=== PATIENT | female | born 1990 | race African-American/Black ===

== ENCOUNTER 2019-01-22 18:20 | Inpatient (IN) ==
[2019-01-22] MEDS ORDERED: MORPHINE IV ONE (18:29)
[2019-01-22] MEDS ORDERED: NS 1,000 ML IV ONE (18:29)
[2019-01-22] MEDS ORDERED: ZOFRAN IV ONE (18:29)
--- NOTE | 2019-01-22 18:37 | PROVIDER DOCUMENTATION ---
This chart was entered by Lauryn Garza Scribe, acting as scribe for Romulo Rodriguez MD. HPI-Female /OB/Breast - General Chief Complaint: Female Stated Complaint: OB Time Seen by Provider: 01/22/19 18:29 Source: reports: patient Allergies/Adverse Reactions: Patient Allergies Allergy/AdvReac Type Severity Reaction Status Date / Time No Known Allergies Allergy Verified 11/26/18 11:18 Home Medications: Home Medication List Medication Instructions Recorded Confirmed Last Taken Type Vit No.128/Iron/FA [Eql 1 tab PO DAILY 04/01/15 01/08/19 04/07/15 09:00 History Vitamin Tablet] Metformin [Glucophage] 750 mg PO DAILY 01/08/19 01/08/19 Unknown History - History of Present Illness-Female /OB Nature of Presenting Problem: Pt presents to ED at 41 wks , having contractions. This is pt 4th . Pt denies water breaking, no bleeding. Pt has had care. Location of complaint: reports: other (contractions) Quality of Pain: reports: aching, tightness Severity in ED: reports: moderate Onset/Duration: reports: 1 hour ago Timing: reports: still present Context/Activities at Onset: reports: none Vaginal Symptoms: reports: no symptoms Vaginal Bleeding Amount: None Urinary Symptoms: reports: no symptoms Related Symptoms: reports: uterine contractions, abdominal pain. denies: vaginal fluid leakage, vaginal bleeding Leakage of Fluid: none Associated Symptoms: reports: denies symptoms - LMP/ History : 4 Para: 3 Care: OB doctor CURRENT Problems: none Review of Systems - Adult - REVIEW OF SYSTEMS - ADULT Constitutional: reports: no symptoms reported. denies: chills, fever Eyes: reports: no symptoms reported Ears, Nose, Mouth & Throat: reports: no symptoms reported Cardiovascular: reports: no symptoms reported Respiratory: reports: no symptoms reported Gastrointestinal: reports: abdominal pain. denies: nausea, vomiting Genitourinary: reports: no symptoms reported Musculoskeletal: reports: no symptoms reported Integumentary: reports: no symptoms reported Neurological: reports: no symptoms reported Psychiatric: reports: no symptoms reported Endocrine: reports: no symptoms reported Hematologic/Lymphatic: reports: no symptoms reported Allergic/Immunologic: reports: no symptoms reported All Other Systems: Reviewed and Negative Past History - Adult - PAST MEDICAL HISTORY-ADULT Review of Records: reports: Old Records Reviewed, Nursing Assessment Review, Medications Reviewed, Social history reviewed & non-contributory. Cardiovascular: reports: denies history Respiratory: reports: denies history Gastrointestinal: reports: denies history Genitourinary: reports: denies history Musculoskeletal: reports: denies history Neurological: reports: denies history Endocrine/Immune: reports: denies history Other Conditions: reports: denies history - PRIOR SURGERIES/PROCEDURES Surgical/Procedure History: reports: none - PRIOR HOSPITALIZATIONS Prior Hospitalizations: reports: none - IMMUNIZATION STATUS Childhood Immunizations: See Nurse Assessment Flu Vaccine: See Nurse Assessment - FAMILY HISTORY Family History: reviewed, not pertinent - SOCIAL HISTORY Substance Use: none/never Alcohol Use Frequency: never Living Situation: family Physical Exam-General - PHYSICAL EXAM-ADULT Initial Vital Signs Reviewed: Yes - CONSTITUTIONAL General Appearance: appears well, alert, moderate distress - EYES Eyes: PERRL/EOMI, pink conjunctivae - HEAD, EARS, NOSE, MOUTH & THROAT HENMT: normocephalic/atraumatic, moist mucous membranes - NECK Neck: non-tender, full range of motion, supple - RESPIRATORY Respiratory: lungs clear - CARDIOVASCULAR Cardiovascular: tachycardia (102) - GASTROINTESTINAL (ABDOMEN) Abdominal Exam: other (gravid abd) - GENITOURINARY Female Genitalia/Pelvic Exam: other (normal visual exam, no ) - MUSCULOSKELETAL Back Exam: normal inspection Extremity: normal range of motion, non-tender, normal gait, normal inspection - SKIN Integumentary: normal color, warm/dry - NEUROLOGIC Neurologic: grossly normal - PSYCHIATRIC Psych/Mental Status: normal mood/affect, normal thought content, normal thought process, oriented x 3 Progress - PLAN OF CARE/RESULTS Progress/Plan/Lab Results: Vital Signs - 8 hr 01/22/19 18:22 Temperature 98 F Pulse Rate 102 H Respiratory Rate 18 Blood Pressure 108/64 O2 Sat by Pulse Oximetry 99 Orders Category Date Time Status CBC WITH ELECTRONIC DIFF [HEME] Stat Lab 01/22/19 18:30 Uncollected COMPREHENSIVE METABOLIC PANEL [CHEM] Stat Lab 01/22/19 18:30 Uncollected TYPE & SCREEN [BBK] Stat Lab 01/22/19 18:[address] W/POSS RFLX CULT [URINALYSIS] Stat Lab 01/22/19 18:30 Uncollected URINE DRUG SCREEN PL Stat Lab 01/22/19 18:30 Uncollected 0.9% Sodium Chloride Inj [Ns] 1,000 ml Med 01/22/19 18:29 Active IV 999 mls/hr Morphine Med 01/22/19 18:29 Discontinued 4 mg IV NOW ONE Ondansetron [Zofran] Med 01/22/19 18:29 Discontinued 4 mg IV NOW ONE - REASSESSMENT Reassessment #1 Time Reassessed: 18:37 Status: improving (Given iVF, morphine/zofran) - CONSULTS/PCP/HOSPITALIST Notification #1 *Consult/PCP/Hospitalist*: Dr. Llanos Time Discussed: 18:35 (accepted, pt will transfer to ) Departure - Departure Date of Disposition Decision: 01/22/19 Time of Disposition Decision: 18:37 DIAGNOSIS: Active labor at term Disposition: ADMITTED INPATIENT 09 Certified Medical Emergency: Emergent Condition: Stable Referrals and Follow-Ups: None,PCP [Primary Care Provider] - - Critical Care Note This patient required my direct & personal management of CC.: No Attestation - Physician/ MARLI Attestation Patient care was provided by Advanced Practice Provider:: No The physician spent face to face time with patient:: Yes Advanced Practice Provider documentation review:: Supervising physician onsite and consulted in the evaluation and care of this patient. The physician did have a face to face encounter with the patient. This chart was documented by the indicated scribe, (Lauryn Garza, Scribe) and accurately reflects the services I performed and decisions made by me, Romulo Rodriguez MD, as attested by the provider's signature.
[2019-01-22] MEDS: STADOL IV ONE ×2 (18:40→19:45)
[2019-01-22 19:14] LABS: BASO# 0.01 X1000 (0.0-0.2); BASO% 0.1 % (0.0-0.8); EOS# 0.11 X1000 (0.0-0.7); EOS% 1.5 % (0.0-10.0); HEMATOCRIT 33.7 % (37.0-47.0); HEMOGLOBIN 10.6 g/dL (12.0-16.0); IMM GRAN# 0.01 X1000 (0.0-0.04); IMM GRAN% 0.1 % (0.0-0.5); LYMPH# 2.25 X1000 (1.2-3.4); LYMPH% 31.1 % (20.5-51.1); MCH 26.2 PG (27-31); MCHC 31.5 g/dL (33-37); MCV 83.2 FL (81-99); MONO# 0.57 X1000 (0.11-0.59); MONO% 7.9 % (1.7-9.3); MPV 9.6 FL (7.4-10.4); NEUT# 4.29 X1000 (1.4-6.5); NEUT% 59.3 % (42.2-75.2); PLT 360 X1000 (130-400); RBC 4.05 XMIL (4.2-5.4); RDW 14.7 % (11.5-14.5); WBC 7.24 X1000 (4.8-10.8)
[2019-01-22] MEDS ORDERED: NS 100 ML IV ONE (19:30)
[2019-01-22] MEDS ORDERED: KEFZOL 1 GM/D5W 1 GM/50 ML IVPB IV PRN (19:34)
[2019-01-22] MEDS ORDERED: ZOFRAN IV PRN (19:34)
[2019-01-22] MEDS ORDERED: AMPICILLIN 2 GM/NS 2 GM/100 ML IVPB IV ONE (19:34)
[2019-01-22] MEDS ORDERED: TYLENOL PO PRN (19:34)
[2019-01-22] MEDS ORDERED: STADOL IV PRN (19:34)
[2019-01-22] MEDS ORDERED: PEPCID PO PRN (19:34)
[2019-01-22] MEDS ORDERED: REGLAN PO ONE (19:34)
[2019-01-22] MEDS ORDERED: PEPCID IV PRN (19:34)
[2019-01-22] MEDS ORDERED: PEPCID PO ONE (19:34)
[2019-01-22] MEDS ORDERED: LR 1,000 ML IV SCH (19:45)
[2019-01-22] MEDS ORDERED: SODIUM CHLORIDE 0.9% INJ SCH (19:45)
[2019-01-22] MEDS ORDERED: PITOCIN 30 UNITS/NS 30 UNIT/500 ML IV.SOLN IV SCH ×2 (19:45→21:30)
[2019-01-22] MEDS ORDERED: FENTANYL-BUPIV-NS 2 MCG-0.1% 250 ML EPIDURAL SCH (20:00)
[2019-01-22] MEDS ORDERED: NAROPIN 0.2% INJ ONE (20:00)
[2019-01-22] MEDS ORDERED: BENADRYL PO PRN (21:29)
[2019-01-22] MEDS ORDERED: PITOCIN IM PRN (21:29)
[2019-01-22] MEDS ORDERED: HYDROXYZINE IM PRN (21:29)
[2019-01-22] MEDS ORDERED: BOOSTRIX VACCINE IM ONE (21:29)
[2019-01-22] MEDS ORDERED: BENADRYL IV PRN (21:29)
[2019-01-22] MEDS ORDERED: MINERAL OIL PO PRN (21:29)
[2019-01-22] MEDS ORDERED: PERI MEDS (DERMOPLAST/NUPERCAINAL/TUCKS) MISC PRN (21:29)
[2019-01-22] MEDS ORDERED: AMBIEN PO PRN (21:29)
[2019-01-22] MEDS ORDERED: CYTOTEC PO PRN (21:29)
[2019-01-22] MEDS ORDERED: NORCO-5 PO PRN (21:29)
[2019-01-22] MEDS ORDERED: XYLOCAINE-MPF 1% INJ PRN (21:29)
[2019-01-22] MEDS ORDERED: M-M-R II VACCINE SUBQ ONE (21:29)
[2019-01-22] MEDS ORDERED: PITOCIN 20 UNITS/NS 20 UNITS/1,000 ML IV.SOLN IV SCH (21:30)
[2019-01-22 21:34] LABS: AGAP 17; ALB/GLOB RATIO 0.9; ALBUMIN 3.5 g/dL (3.5-5.0); ALKALINE PHOSPHATASE 274 U/L (32-104); BUN 3 mg/dL (8-22); CALCIUM 8.7 mg/dL (8.8-10.2); CHLORIDE 100 mmol/L (98-107); COSMO 269; CREATININE 0.6 mg/dL (0.5-0.9); ESTIMATED GFR > 60; GLUCOSE 115 mg/dL (70-104); GOT 16 U/L (10-30); GPT < 5 U/L (10-36); POTASSIUM 3.9 mmol/L (3.5-5.1); SODIUM 136 mmol/L (136-145); TCO2 19 mmol/L (25-35); TOTAL BILIRUBIN 0.15 mg/dL (0.20-1.00); TOTAL PROTEIN 7.5 g/dL (6.3-8.3)
--- NOTE | 2019-01-22 21:44 | HISTORY AND PHYSICAL ---
HISTORY OF PRESENT ILLNESS: The patient is a 28-year-old black female, G4, P3, who is 40 weeks and 6/7 weeks by her due date that was established in [place] under the care of Dr. Vidal. Patient had been seen by Dr. Vidal and then switched to Dr. Webb, and was last seen in late October for our only visit with Dr. Webb. She reports care has been unremarkable to date, and she has had 3 prior vaginal deliveries, and we have unknown group B strep status. PAST MEDICAL HISTORY: Unremarkable. PAST SURGICAL HISTORY: Laparoscopy for endometriosis. PAST OB HISTORY: G4, P3, spontaneous vaginal delivery x3. Largest 8 pounds. CERTIFIED MORTICIAN HISTORY: Menarche at age 10. REVIEW OF SYSTEMS: All systems reviewed and noncontributory. FAMILY HISTORY: Unremarkable. SOCIAL HISTORY: Tobacco use, 3 cigarettes per day. Alcohol use none. MEDICATIONS: vitamins. ALLERGIES: No known drug allergies. PHYSICAL EXAMINATION: VITAL SIGNS: Height 5 feet 8 inches, weight 190 pounds. Temperature 98.7 degrees, blood pressure 122/72, respirations 20, pulse of 82. heart rate 115 to 130 with good hfym-hq-kgha variability. HEENT: Pupils equal, round, reactive to light and accommodation. Extraocular movements intact. Oropharynx clear. NECK: Supple. No thyromegaly. LUNGS: Clear to auscultation. HEART: Regular rate and rhythm. ABDOMEN: Gravid, nontender. Cervix, when she initially presented, was 5 to 6 cm and she progressed from there. EXTREMITIES: No clubbing, cyanosis, or edema noted. NEUROLOGIC: Cranial nerves 2 through 12 grossly intact. Motor 5/5. DTRs 2+ bilaterally. ASSESSMENT AND PLAN: A 28-year-old black female, 4, para 3, at 40 and 6/7 weeks by her stated due date that was established in [place] under Dr. Vidal, and also established with an early ultrasound. Patient with unknown group B strep status. Patient will be admitted for routine care and will be placed on ampicillin for group B strep prophylaxis. Anticipate vaginal delivery. Patient may have an epidural. cc: Adonis Reynolds III, MD
--- NOTE | 2019-01-22 22:09 | OPERATIVE NOTE ---
PROCEDURE DATE: 01/22/2019 VAGINAL DELIVERY NOTE: The patient progressed to complete pushing and had spontaneous vaginal delivery of a female infant, 7 pounds 5 ounces, with Apgars of 9 and 10 at 21:12 on 01/22/2019 over intact perineum. Cord blood sample was obtained at this time. Placenta delivered intact with 3-vessel cord. UNPAID INTERN: Dr. Adnois Reynolds III. ESTIMATED BLOOD LOSS: 150 mL. ANESTHESIA: Epidural. COUNTS: All counts were correct x2. cc: Adonis Reynolds III, MD
[2019-01-22] MEDS: MOTRIN PO PRN (22:29)
[2019-01-22] MEDS ORDERED: AMPICILLIN 2 GM in NS 100 ML IV ONE (22:37)
[2019-01-22 22:42] LABS: UR AMPHETAMINES QUAL NONE DETECTED (NONE DETECT); UR BARBITUATES QUAL NONE DETECTED (NONE DETECT); UR BENZODIAZEPIN QUAL NONE DETECTED (NONE DETECT); UR CANNABINOIDS QUAL NONE DETECTED (NONE DETECT); UR COCAINE QUAL NONE DETECTED (NONE DETECT); UR METHADONE QUAL NONE DETECTED (NONE DETECT); UR OPIATES QUAL NONE DETECTED (NONE DETECT); UR OXYCODONE QUAL NONE DETECTED (NONE DETECT); UR PCP QUAL NONE DETECTED (NONE DETECT)
[2019-01-22] MEDS ORDERED: AMPICILLIN IV ONE (23:15)
[2019-01-22] MEDS ORDERED: AMPICILLIN 1 GM/NS 1 GM/50 ML IVPB IV SCH (23:36)
[2019-01-23] MEDS: NORCO-10 PO PRN ×4 (01:37→20:43)
[2019-01-23 01:47] LABS: RAPID HIV PRESUMPTIVE NEGATIVE; RUBELLA SCREEN IMMUNE (IMMUNE)
[2019-01-23 06:23] LABS: BASO# 0.01 X1000 (0.0-0.2); BASO% 0.1 % (0.0-0.8); EOS# 0.05 X1000 (0.0-0.7); EOS% 0.5 % (0.0-10.0); HEMATOCRIT 32.7 % (37.0-47.0); HEMOGLOBIN 10.3 g/dL (12.0-16.0); IMM GRAN# 0.03 X1000 (0.0-0.04); IMM GRAN% 0.3 % (0.0-0.5); LYMPH# 2.39 X1000 (1.2-3.4); LYMPH% 21.7 % (20.5-51.1); MCH 26.7 PG (27-31); MCHC 31.5 g/dL (33-37); MCV 84.7 FL (81-99); MONO# 0.97 X1000 (0.11-0.59); MONO% 8.8 % (1.7-9.3); MPV 9.7 FL (7.4-10.4); NEUT# 7.57 X1000 (1.4-6.5); NEUT% 68.6 % (42.2-75.2); PLT 312 X1000 (130-400); RBC 3.86 XMIL (4.2-5.4); RDW 14.8 % (11.5-14.5); WBC 11.02 X1000 (4.8-10.8)
[2019-01-23] MEDS: NICODERM PATCH TD PRN (06:54)
--- NOTE | 2019-01-23 08:00 | OB/GYN PROGRESS NOTE ---
Progress Note OB - . Patient Problems: Current Active Problems Problem Status Onset Active labor at term Acute OB Progress Note: Vital Signs - 24 hr 01/22/19 18:22 01/22/19 19:41 01/22/19 20:31 Temperature 98 F 98.7 F 98.6 F Pulse Rate 102 H 85 Respiratory Rate 18 20 Blood Pressure 108/64 120/58 136/60 Blood Pressure [Right Arm] O2 Sat by Pulse Oximetry 99 100 01/22/19 20:48 01/22/19 21:31 01/22/19 21:41 Temperature 98.6 F Pulse Rate 103 H 89 91 H Respiratory Rate 20 18 18 Blood Pressure 132/55 Blood Pressure [Right Arm] 136/60 O2 Sat by Pulse Oximetry 100 100 99 01/22/19 21:51 01/22/19 22:03 01/22/19 22:10 Temperature Pulse Rate 92 H 84 88 Respiratory Rate 18 18 18 Blood Pressure Blood Pressure [Right Arm] 126/58 120/60 O2 Sat by Pulse Oximetry 100 100 100 01/22/19 22:30 01/22/19 22:31 01/23/19 00:32 Temperature 97.6 F Pulse Rate 88 88 74 Respiratory Rate 18 16 Blood Pressure 120/60 112/57 Blood Pressure [Right Arm] O2 Sat by Pulse Oximetry 100 99 99 01/23/19 04:41 Temperature 97.9 F Pulse Rate 71 Respiratory Rate 16 Blood Pressure 105/64 Blood Pressure [Right Arm] O2 Sat by Pulse Oximetry 100 Laboratory Results - last 24 hr 01/22/19 01/22/19 01/22/19 14:48 18:20 18:30 WBC 7.24 RBC 4.05 L Hgb 10.6 L Hct 33.7 L MCV 83.2 MCH 26.2 L MCHC 31.5 L RDW Std Deviation 14.7 H Plt Count 360 MPV 9.6 Immature Gran % (Auto) 0.1 Neut % (Auto) 59.3 Lymph % (Auto) 31.1 [place] % (Auto) 7.9 Eos % (Auto) 1.5 Baso % (Auto) 0.1 Immature Gran # (Auto) 0.01 Neut # (Auto) 4.29 Lymph # (Auto) 2.25 [place] # (Auto) 0.57 Eos # (Auto) 0.11 Baso # (Auto) 0.01 Sodium 136 Potassium 3.9 Chloride 100 Carbon Dioxide 19 L Anion Gap 17 BUN 3 L Creatinine 0.6 Estimated GFR/1.73 m2 > 60 BUN/Creatinine Ratio 5 Glucose 115 H Calculated Osmolality 269 Calcium 8.7 L Total Bilirubin 0.15 L AST 16 ALT < 5 L Alkaline Phosphatase 274 H Total Protein 7.5 Albumin 3.5 Globulin 4.0 Albumin/Globulin Ratio 0.9 Urine Opiates Screen Ur Oxycodone Screen Ur Methadone, Qual Ur Barbiturates Screen Ur Phencyclidine Scrn Ur Amphetamines Screen U Benzodiazepines Scrn Urine Cocaine Screen U Cannabinoids Screen RPR NON-REACTIVE HIV 1&2 Antibody Rapid Rubella Immunity Screen 01/22/19 01/23/19 01/23/19 20:30 00:22 00:22 WBC RBC Hgb Hct MCV MCH MCHC RDW Std Deviation Plt Count MPV Immature Gran % (Auto) Neut % (Auto) Lymph % (Auto) [place] % (Auto) Eos % (Auto) Baso % (Auto) Immature Gran # (Auto) Neut # (Auto) Lymph # (Auto) [place] # (Auto) Eos # (Auto) Baso # (Auto) Sodium Potassium Chloride Carbon Dioxide Anion Gap BUN Creatinine Estimated GFR/1.73 m2 BUN/Creatinine Ratio Glucose 106 H Calculated Osmolality Calcium Total Bilirubin AST ALT Alkaline Phosphatase Total Protein Albumin Globulin Albumin/Globulin Ratio Urine Opiates Screen NONE DETECTED Ur Oxycodone Screen NONE DETECTED Ur Methadone, Qual NONE DETECTED Ur Barbiturates Screen NONE DETECTED Ur Phencyclidine Scrn NONE DETECTED Ur Amphetamines Screen NONE DETECTED U Benzodiazepines Scrn NONE DETECTED Urine Cocaine Screen NONE DETECTED U Cannabinoids Screen NONE DETECTED RPR HIV 1&2 Antibody Rapid PRESUMPTIVE NEGATIVE Rubella Immunity Screen IMMUNE 01/23/19 05:58 WBC 11.02 H RBC 3.86 L Hgb 10.3 L Hct 32.7 L MCV 84.7 MCH 26.7 L MCHC 31.5 L RDW Std Deviation 14.8 H Plt Count 312 MPV 9.7 Immature Gran % (Auto) 0.3 Neut % (Auto) 68.6 Lymph % (Auto) 21.7 [place] % (Auto) 8.8 Eos % (Auto) 0.5 Baso % (Auto) 0.1 Immature Gran # (Auto) 0.03 Neut # (Auto) 7.57 H Lymph # (Auto) 2.39 [place] # (Auto) 0.97 H Eos # (Auto) 0.05 Baso # (Auto) 0.01 Sodium Potassium Chloride Carbon Dioxide Anion Gap BUN Creatinine Estimated GFR/1.73 m2 BUN/Creatinine Ratio Glucose Calculated Osmolality Calcium Total Bilirubin AST ALT Alkaline Phosphatase Total Protein Albumin Globulin Albumin/Globulin Ratio Urine Opiates Screen Ur Oxycodone Screen Ur Methadone, Qual Ur Barbiturates Screen Ur Phencyclidine Scrn Ur Amphetamines Screen U Benzodiazepines Scrn Urine Cocaine Screen U Cannabinoids Screen RPR HIV 1&2 Antibody Rapid Rubella Immunity Screen No complaints, denies orthostatic or pih sx. AF/VSS A&O NAD CTAB RRR S/ND/Fundus firm Normal lochia No C/C/E PPD 1 s/p doing well - Ambulate - post care - anticipate D/C home Friday.
[2019-01-23] MEDS: FERROUS SULFATE PO SCH (09:20)
[2019-01-23] MEDS: MOTRIN PO PRN ×2 (09:23→18:00)
[2019-01-23 18:45] LABS: HIV ANTIBODY SCREEN SEE COMMENTS
[2019-01-23] MEDS: PERICOLACE PO SCH (20:43)
[2019-01-23] MEDS: ATARAX PO PRN (20:43)
[2019-01-24] MEDS: FERROUS SULFATE PO SCH (08:37)
[2019-01-24 08:38] LABS: HEPATITIS B SURFACE ANTIGEN SEE COMMENTS
[2019-01-24] MEDS ORDERED: CELEXA PO ONE (09:15)
[2019-01-24] MEDS: MOTRIN PO PRN ×2 (10:04→17:49)
[2019-01-24] MEDS: NORCO-10 PO PRN ×3 (10:04→21:40)
--- NOTE | 2019-01-24 10:16 | OB/GYN PROGRESS NOTE ---
Progress Note OB - . Patient Problems: Current Active Problems Problem Status Onset depression Acute Status post vaginal delivery Acute Limited care Acute Active labor at term Acute OB Progress Note: Vital Signs - 24 hr 01/23/19 11:16 01/23/19 15:30 01/23/19 20:45 Temperature 97 F L 97.2 F L 97.6 F Pulse Rate 77 74 70 Respiratory Rate 20 20 16 Blood Pressure 127/63 129/78 125/75 O2 Sat by Pulse Oximetry 100 100 100 01/24/19 07:11 Temperature 97.5 F L Pulse Rate 80 Respiratory Rate 20 Blood Pressure 120/67 O2 Sat by Pulse Oximetry 100 Laboratory Results - last 24 hr 01/23/19 01/23/19 00:22 01:48 Hep Bs Antigen SEE COMMENTS HIV 1&2 Antibody Screen SEE COMMENTS 28 yo PPD#2 s/p with limited PNC, post- depression/anxiety Patient seen and examined. Pain controlled. Normal lochia. She is ambulating and voiding without difficulty. She is tolerating a regular diet, denies nausea/vomiting. She denies any fever/chills. She is and supplementing with a bottle. She desires POPs for immediate pp contraception, but ultimately a BTL. Discussed post- depression and she has a history in previous pregnancies, she desires to start medication for treatment. She has taken zoloft in the past, but was not satisfied with it. Discussed starting celexa and she agrees. She delivered at 9pm on Friday, baby has to stay one more day due to Martina test. Physical Exam-General - PHYSICAL EXAM-ADULT Initial Vital Signs Reviewed: Yes - CONSTITUTIONAL General Appearance: appears well, alert, no apparent distress - EYES Eyes: PERRL/EOMI - HEAD, EARS, NOSE, MOUTH & THROAT HENMT: normocephalic/atraumatic - RESPIRATORY Respiratory: lungs clear, normal breath sounds - CARDIOVASCULAR Cardiovascular: regular rate, rhythm - GASTROINTESTINAL (ABDOMEN) Abdominal Exam: normal bowel sounds, soft (ATTP, non-distended, fundus firm/below umbilicus), other - MUSCULOSKELETAL Extremity: normal range of motion, non-tender, no pedal edema - PSYCHIATRIC Psych/Mental Status: normal mood/affect Assessment/Plan - Assessment/Plan Assessment: 28 yo PPD#2 s/p at 40w6d with limited PNC, post- depression 1. HD stable, afebrile, PP hgb 10.3 2. Routine PP care 3. Start celexa for PP depression 4. D/C home tomorrow, will be 48 hrs tonight and not being discharged 5. Encourage ambulation 6. Desires POPs for PP contraception, but ultimately desires BTL> Return to clinic in 3 weeks to discuss.
[2019-01-24] MEDS: NICODERM PATCH TD PRN (12:37)
[2019-01-24] MEDS ORDERED: NICODERM PATCH TD PRN ×2 (20:45→21:22)
[2019-01-24] MEDS: PERICOLACE PO SCH (21:07)
[2019-01-25] MEDS: ATARAX PO PRN (01:06)
[2019-01-25] MEDS: MOTRIN PO PRN (02:17)
--- NOTE | 2019-01-25 07:05 | OB/GYN PROGRESS NOTE ---
- Subjective Pt seen and examined. Currently w/o complaints. Ambulating and urinating well. +breast and bottle feeding. Requesting BTL for contraception. Pain well controlled. Denies si/sy of depression. Denies fever/c/n/v OB Physical Exam Vital Signs - 8 hr 01/25/19 02:21 Pulse Rate 78 Respiratory Rate 16 Blood Pressure 124/78 O2 Sat by Pulse Oximetry 99 - CONSTITUTIONAL General Appearance: appears well, alert, no apparent distress - RESPIRATORY Respiratory: lungs clear, normal breath sounds - CARDIOVASCULAR Cardiovascular: regular rate, rhythm - GASTROINTESTINAL (ABDOMEN) Abdominal Exam: non tender, soft - MUSCULOSKELETAL Extremity: no pedal edema, no calf tenderness - PSYCHIATRIC Psych/Mental Status: normal mood/affect, oriented x 3 Active Medications Generic Name Dose Route Start Last Admin Trade Name Freq PRN Reason Stop Dose Admin Acetaminophen 650 mg 01/22/19 19:34 Tylenol PO Q4-6H PRN PRN Headache Hydrocodone Bitart/Acetaminophen 1 each 01/22/19 21:29 01/24/19 21:40 [place]-10 PO 1 each Q3-4H PRN PRN Administration Pain (7-10 on Pain Scale) Hydrocodone Bitart/Acetaminophen 1 each 01/22/19 21:29 [place]-5 PO Q3-4H PRN PRN Pain (1-6 on Pain Scale) Benzocaine 1 each 01/22/19 21:29 01/22/19 22:31 Rebekah Meds (Dermoplast/Nupercainal/Tucks) MISC 1 pkg 3-4XDAY PRN PRN Administration episiotomy/hemorrhoids Butorphanol Tartrate 2 mg 01/22/19 19:34 Stadol IV PRN PRN Pain Diphenhydramine HCl 12.5 mg 01/22/19 21:29 Benadryl IV Q4H PRN PRN Itching Diphenhydramine HCl 25 mg 01/22/19 21:29 01/24/19 23:09 Benadryl PO 25 mg Q4H PRN PRN Administration Itching Famotidine 20 mg 01/22/19 19:34 Pepcid IV Q12H PRN PRN GI upset or indigestion Famotidine 40 mg 01/22/19 19:34 Pepcid PO Q12H PRN PRN GI upset or indigestion Ferrous Sulfate 325 mg 01/23/19 09:00 01/24/19 08:37 Ferrous Sulfate PO 325 mg DAILY TRICIA Administration Hydroxyzine HCl 50 mg 01/22/19 21:29 Hydroxyzine IM Q3-4H PRN PRN Nausea Hydroxyzine HCl 50 mg 01/22/19 21:29 01/25/19 01:06 Atarax PO 50 mg Q3-4H PRN PRN Administration Nausea Cefazolin Sodium/Dextrose 1 gm in 50 mls @ 100 mls/hr 01/22/19 19:34 Kefzol 1 Gm/D5w IV ONCE PRN PRN SECTION Fentanyl/Bupivacaine/Sodium Chlor 250 mls @ 0 mls/hr 01/22/19 20:00 01/22/19 19:58 Qwepelwg-Lbdlz-Ts 2 Mcg-0.1% EPIDURAL 13 mls/hr DIRECTED TRICIA Administration As Directed Oxytocin/Sodium Chloride 20 units in 1,000 mls @ 0 mls/hr 01/22/19 21:30 Pitocin 20 Units/Ns IV .Q0M TRICIA As Directed Ibuprofen 800 mg 01/22/19 21:29 01/25/19 02:17 Motrin PO 800 mg Q8H PRN PRN Administration cramping Lidocaine HCl 30 ml 01/22/19 21:29 Xylocaine-Mpf 1% INJ PRN PRN Perineal repair Mineral Oil 30 ml 01/22/19 21:29 Mineral Oil PO PRN PRN Perineal massage Misoprostol 800 microgm 01/22/19 21:29 Cytotec PO PRN PRN Severe bleeding Nicotine 14 mg 01/24/19 21:22 01/24/19 21:40 Nicoderm Patch TD 14 mg DAILY PRN PRN Administration tobacco withdrawal Ondansetron HCl 4 mg 01/22/19 19:34 Zofran IV PRN PRN Nausea Oxytocin 20 unit 01/22/19 21:29 Pitocin IM PRN PRN Severe bleeding Senna/Docusate Sodium 1 each 01/23/19 21:00 01/24/19 21:07 Pericolace PO 1 each QHS TRICIA Administration Sodium Chloride 5 - 10 ml 01/22/19 19:45 Sodium Chloride 0.9% INJ DIRECTED TRICIA Zolpidem Tartrate 10 mg 01/22/19 21:29 Ambien PO HS PRN PRN Sleep Laboratory Results - last 24 hr 01/23/19 00:22 Hep Bs Antigen SEE COMMENTS - Assessment & Plan (1) Status post vaginal delivery Status: Resolved - Progress Note Disposition: 28 yo PPD#3 s/p at 40w6d with limited PNC, post- depression 1. HD stable, afebrile, PP hgb 10.3 2. Routine PP care 3. Continue celexa for PP depression 4. D/C home today 5. Encourage ambulation 6. Desires POPs for PP contraception, but ultimately desires BTL> Return to clinic in 1 weeks to discuss.
[2019-01-25] MEDS ORDERED: CELEXA PO SCH (09:00)
[2019-01-25 09:38] VITALS: BP 120/59
[2019-01-25] MEDS: FERROUS SULFATE PO SCH (09:42)
[2019-01-26] MEDS ORDERED: CELEXA PO SCH (09:00)
== END 2019-01-25 12:10 | disposition home or self-care (01) | DRG 807 ==
LOC: P.ED 18:20 → OPLD 19:04 → LD 19:18
PROVIDERS: ADMIT Obstetrics & Gynecology; ATTEND Obstetrics & Gynecology